=== PATIENT | male | born 1950 | race Two or more races ===

== ENCOUNTER 2019-08-05 08:00 | Outpatient (CLI) | payer OTHER | END 2019-08-05 08:05 | disposition home or self-care (01) | LOC: RX STUDY 08:00 | PROVIDERS: ATTEND Internal Medicine Gastroenterology | DX: R13.13 Dysphagia, pharyngeal phase (principal) ==

== ENCOUNTER 2019-09-19 10:59 | Outpatient (CLI) | payer OTHER | END 2019-09-19 11:06 | disposition home or self-care (01) | LOC: TOM 10:59 | DX: K11.5 Sialolithiasis (principal) | CPT/HCPCS: 70492; Q9965 ==

== ENCOUNTER 2019-09-19 12:06 | Outpatient (CLI) | payer OTHER | END 2019-09-19 15:00 | disposition home or self-care (01) | LOC: LAB 12:06 | PROVIDERS: ATTEND Radiology Diagnostic Radiology | DX: N20.0 Calculus of kidney (principal) ==